=== PATIENT | male | born 1950 | race Caucasian/White ===

== ENCOUNTER 2024-10-04 17:49 | Inpatient (IN) | payer MEDICARE, OTHER ==
[2024-10-04 19:40] LABS: #Basophils 0.07 10x3/uL (0.0-0.2); %Basophils 1.1 % (0.0-1.0); %Eosinophils 4.2 % (0.0-10.0); %Lymphocytes 29.6 % (21.0-51.0); %Monocytes 6.4 % (0.0-10.0); %Neutrophils 58.5 % (42.0-75.0); Hematocrit 39.6 % (42.0-52.0); Hemoglobin 14.5 g/dL (14.0-18.0); Mean Corpuscular HGB CONC 36.6 g/dL (32.0-36.0); Mean Corpuscular Hemoglobin 32.2 pg (27.0-31.0); Mean Corpuscular Volume 87.8 fL (78.0-98.0); Mean Platelet Volume 10.7 fL (7.4-10.4); Platelet Count 207 10x3/uL (130-400); RBC Distribution Width 12.4 % (11.5-14.5); Red Blood Cell (RBC) Count 4.51 mill/uL (4.70-6.10)
[2024-10-04 20:07] LABS: Troponin I Less than 0.010 ng/mL (< 0.028)
[2024-10-04 20:11] LABS: ALT (SGPT) 30 U/L (8-55); AST (SGOT) 27 U/L (5-34); Albumin 3.8 g/dL (3.4-4.8); Alkaline Phosphatase 140 U/L (40-110); Anion Gap 13 mmol/L (10-20); BUN (Urea Nitrogen) 12 mg/dL (8.4-25.7); Calc. Creatinine Clearance 0 mL/min (70-130); Calcium 9.5 mg/dL (7.8-10.44); Carbon Dioxide 28 mmol/L (23-31); Chloride 91 mmol/L (98-107); Estimated GFR 58; Globulin 3.2 g/dL (2.4-3.5); Glucose 705 mg/dL (83-110); Lipase 50 U/L (8-78); Magnesium 1.9 mg/dL (1.6-2.6); Potassium 2.9 mmol/L (3.5-5.1); Sodium 129 mmol/L (136-145)
[2024-10-04] MEDS ORDERED: Potassium Chloride 20 MEQ TAB ONE (21:21)
[2024-10-04 21:22] LABS: Actual Bicarbonate (HCO3v) 29.4 mEq/L (22-28); Base Excess 3.7 mEq/L (-2.0 to +3.0); Calcium, Ionized (venous) 1.14 mmol/L (1.16-1.32); Chloride (VBG) 88 mmol/L (98-106); Hematocrit-VBG 43 % (42.0-52.0); Hemoglobin (Hb) 14.5 g/dL (12.6-17.4); Potassium (VBG) 2.73 mmol/L (3.70-5.30); Sodium 129 mmol/L (133-146); pH (venous) 7.403 (7.32-7.43)
[2024-10-04] MEDS ORDERED: NS 0.9% w/ 20 MEQ KCL 1,000 ML ONE (21:29)
[2024-10-04 21:54] LABS: Bacteria/HPF None Seen HPF (None Seen); Bilirubin Negative (Negative); Blood, Urine Negative (Negative); CAUTI Indications for Culture Dysuria,urgency,freq; Clarity Clear (Clear); Glucose, Urine (Dipstick) Greater than 1000 mg/dL (Negative); Ketone, Urine Negative (Negative); Leukocyte Negative Leu/uL (Negative); Nitrite Negative (Negative); Protein, Urine (Dipstick) Negative (Neg-Trace); RBC/HPF 0-3 HPF (0-3); Specific Gravity, Urine 1.032 (1.002-1.036); Squamous Epithelial None Seen HPF (0-3); Urobilinogen Normal mg/dL (Less than 2); WBC/HPF None Seen HPF (0-3)
[2024-10-04 21:56] LABS: Urine Culture Reflex No No
[2024-10-04] MEDS ORDERED: Acetaminophen 325 MG TAB PO PRN (22:15)
[2024-10-04] MEDS ORDERED: Ondansetron PF 4 MG/2 ML Vial IVP PRN (22:15)
[2024-10-04] MEDS ORDERED: Ondansetron ODT 4 MG TAB SL PRN (22:15)
[2024-10-05] MEDS ORDERED: Electrolyte Replacement Protocol 1 EACH FS PRN (00:33)
[2024-10-05] MEDS ORDERED: Ondansetron PF 4 MG/2 ML Vial IVP PRN (00:34)
[2024-10-05] MEDS ORDERED: Dextrose 50% Abboject 50 ML SYRINGE SLOW IVP PRN (00:34)
[2024-10-05] MEDS ORDERED: Dextrose 5% in Water 1,000 ML IV PRN (00:34)
[2024-10-05] MEDS ORDERED: Glucagon 1 MG/ML KIT IM PRN (00:34)
[2024-10-05] MEDS ORDERED: Ondansetron ODT 4 MG TAB PO PRN (00:34)
[2024-10-05] MEDS ORDERED: Acetaminophen 650 MG Suppository PR PRN (00:34)
[2024-10-05] MEDS ORDERED: Insulin Lispro 100 UNIT/ML 10 ML VIAL SC PRN (00:34)
[2024-10-05 01:40] LABS: Hemoglobin A1c 12.1 % (4.0-6.0)
[2024-10-05] MEDS: NS 0.9% w/ 20 MEQ KCL 1,000 ML IV SCH ×2 (02:25)
[2024-10-05] MEDS ORDERED: Magnesium 2 GM/50 ML BAG (IN WATER) ONE (02:26)
[2024-10-05] MEDS: Magnesium 2 GM/50 ML(in water) 2 GM in Premix 1 BAG IVPB SCH (03:25)
[2024-10-05] MEDS: PHOS-NAK 1 PKT PACK PO SCH (03:30)
[2024-10-05 04:23] VITALS: BMI 26.4
[2024-10-05 04:48] LABS: #Basophils 0.04 10x3/uL (0.0-0.2); %Basophils 0.7 % (0.0-1.0); %Lymphocytes 38.9 % (21.0-51.0); %Monocytes 6.4 % (0.0-10.0); %Neutrophils 48.8 % (42.0-75.0); Hematocrit 35.2 % (42.0-52.0); Hemoglobin 12.8 g/dL (14.0-18.0); Mean Corpuscular HGB CONC 36.4 g/dL (32.0-36.0); Mean Platelet Volume 10.3 fL (7.4-10.4); Platelet Count 179 10x3/uL (130-400); RBC Distribution Width 12.3 % (11.5-14.5)
[2024-10-05 05:15] LABS: ALT (SGPT) 23 U/L (8-55); AST (SGOT) 23 U/L (5-34); Albumin 3.2 g/dL (3.4-4.8); Alkaline Phosphatase 112 U/L (40-110); Anion Gap 12 mmol/L (10-20); BUN (Urea Nitrogen) 9 mg/dL (8.4-25.7); Calc. Creatinine Clearance 95 mL/min (70-130); Calcium 8.1 mg/dL (7.8-10.44); Carbon Dioxide 25 mmol/L (23-31); Cardiac Risk 4.7 (Less than 4.5); Chloride 100 mmol/L (98-107); Cholesterol 132 mg/dl (< 200 Desired); Estimated GFR 90; Globulin 2.7 g/dL (2.4-3.5); Glucose 418 mg/dL (83-110); HDL Cholesterol 28 mg/dL (>60 Neg Risk); Potassium 2.8 mmol/L (3.5-5.1); Protein, Total 5.9 g/dL (5.8-8.1); Sodium 134 mmol/L (136-145); Triglycerides 489 mg/dL (Less than 150)
[2024-10-05] MEDS ORDERED: Acetaminophen 325 MG TAB ONE (06:32)
[2024-10-05] MEDS ORDERED: Potassium Chloride 20 MEQ TAB ONE (06:33)
[2024-10-05] MEDS ORDERED: Insulin Regular, Human 100 UNIT/ML 10 ML VIAL ONE (06:33)
[2024-10-05] MEDS: Acetaminophen 325 MG TAB PO SCH (06:41)
[2024-10-05] MEDS ORDERED: Insulin Lispro 100 UNIT/ML 10 ML VIAL ONE (06:47)
[2024-10-05] MEDS: Insulin Regular, Human 100 UNIT/ML 10 ML VIAL IVP SCH (07:09)
[2024-10-05] MEDS: Insulin Lispro 100 UNIT/ML 10 ML VIAL SC PRN (07:10)
[2024-10-05] MEDS: Potassium Chloride 20 MEQ TAB PO SCH (08:35)
[2024-10-05] MEDS: Famotidine 20 MG TAB PO SCH (08:36)
[2024-10-05] MEDS: Famotidine/PF 20 mg/2ml Vial SLOW IVP SCH (08:37)
[2024-10-05] MEDS: metFORMIN 500 MG TAB PO SCH ×2 (10:29→15:31)
[2024-10-05] MEDS: Cholestyramine/Aspartame 4 gm Packet PO SCH (15:29)
[2024-10-05 17:53] VITALS: BP 163/80; TEMP 97.7
== END 2024-10-05 18:26 | disposition home or self-care (01) | DRG 639 ==
LOC: ERS 17:49 → ERHOLD 22:02 → PCU 22:31
PROVIDERS: ADMIT Student in an Organized Health Care Education/Training Program; ATTEND Internal Medicine
DX: E11.65 Type 2 diabetes mellitus with hyperglycemia (principal); E86.0 Dehydration; E87.6 Hypokalemia; Z98.890 Other specified postprocedural states; Z79.84 Long term (current) use of oral hypoglycemic drugs; Z79.899 Other long term (current) drug therapy
CPT/HCPCS: 36415; 36416; 71045; 80053; 80061; 81001; 82010; 82805; 83036; 83690; 83735; 84100; 84484; 85025; 93005; 94760; 96365; 96366; J1815; J3475; J3480; J3490